=== PATIENT | male | born 1925 | race Caucasian/White ===

== ENCOUNTER → 2016-12-11 | Outpatient (CLI) | payer BC ==
[~2016-12-11] MED LIST: ASPEC81 PO; CHOL100027 PO; ERYT250C PO; HYDR25TA4 PO; LISI5TAB3 PO; MULT-506 PO; WARF5TAB90 PO
== END | disposition home or self-care (01) ==
LOC: C.LAB1850 16:25
PROVIDERS: ATTEND Internal Medicine
DX: I10 Essential (primary) hypertension (principal)